=== PATIENT | female | born 1990 | race Caucasian/White ===

== ENCOUNTER 2018-08-13 11:18 | Emergency (ER) | payer OTHER ==
[~2018-08-13] VITALS: Ht 167.6 cm; Wt 59.0 kg
[~2018-08-13 11:18] MED LIST: BACTROBAN22 GM TP; CEFADROXIL500 MG PO; KETO10TA2 PO
== END 2018-08-13 14:57 | disposition home or self-care (01) ==
LOC: ER 11:18
DX: M54.5 Low back pain (principal)